=== PATIENT | female | born 1960 | race Caucasian/White ===

== ENCOUNTER → 2017-11-29 | Outpatient (CLI) | payer OTHER ==
[~2017-11-29] VITALS: Ht 162.6 cm; Wt 80.7 kg
[~2017-11-29] MED LIST: AMITRIPTYLINE H10 M3 PO; BACTRIM DS TAB1 EAC1 PO; CRANBERRY200 MG PO; LIPITOR10 MG PO; LISINOPRIL10 MG PO; MEDROLDOSEPACK PO; NEURONTIN300 MG PO; NORCO 5-325 TA1 EACH PO; PERCOCET 5-3251 EACH PO; PERCOCET PO; VITAMIN D3400 UNIT PO; ZOLOFT100 MG PO
[2017-11-29 19:16] VITALS: BP 136/78
== END ==
LOC: M.ERS 16:40 → M.CT 16:40
DX: R10.9 Unspecified abdominal pain (principal); R31.9 Hematuria, unspecified; Z90.710 Acquired absence of both cervix and uterus

== ENCOUNTER → 2017-12-02 | Outpatient (CLI) | payer OTHER | LOC: M.MRI 06:39 | DX: M47.812 Spondylosis without myelopathy or radiculopathy, cervical region (principal); M48.02 Spinal stenosis, cervical region ==

== ENCOUNTER → 2018-01-20 | Outpatient (CLI) | payer OTHER ==
--- NOTE | 2018-01-28 17:38 | PAINCON ---
[address] [address] PAIN MANAGEMENT CONSULTATION Name: ISABEL DALE Room: [facility].#: [id number] Admission: 01/20/18 Attend Phys: Patti Vasquez MD Discharge: Date of : 64 Report #: [id number] THIS REPORT FOR: //name// CC: Aysha Vasquez DATE OF SERVICE: 01/20/2018 CHIEF COMPLAINT: "Pain in my right shoulder, arm and down into my finger." HISTORY OF PRESENT ILLNESS: The patient is a 57-year-old female who has been referred to the pain clinic for evaluation of neck and arm pain. The patient states that she has been experiencing pain and discomfort involving her right arm with pain radiating down into the right arm with some numbness in the forearm as well as into the index finger. She has tried a Medrol Dosepak and oxycodone. She did not note any long-term or significant benefit from that. She has gone to a chiropractor. Rates her pain as a 6-7/. She has been trying gabapentin 300 mg t.i.d. The patient has been seen in the Emergency Room because of the pain and discomfort. She has had an MRI, which has shown some bulging of the disks in the cervical area along the C6-C7 area. ALLERGIES: No known drug allergies. MEDICATIONS: Lipitor 10 mg at bedtime, vitamin D3, cranberry extract 200 mg, Neurontin 300 mg t.i.d., lisinopril 10 mg, and Zoloft 100 mg at bedtime. PAST MEDICAL HISTORY: Hypertension, thyroid disease - goiter, emotional problems/depression, mitral regurgitation, and hyperlipidemia. PAST SURGICAL HISTORY: Hysterectomy in 07/2014, right knee surgery 12/2010, right knee surgery 11/2017, and goiter biopsy of the thyroid on 12/30/2016. 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 She is working at this juncture. REVIEW OF SYSTEMS: Generally good health, wears glasses, change in bowel movements, constipation, frequent urination, incontinent, right knee surgery, pain and walking difficulty because of that. LABORATORY DATA: MRI dated 12/02/2017: 1. C5-C6 left paracentral disk osteophyte complex, which effaces the left lateral recess. No significant central canal stenosis. No significant right or wwxcnqpi-ey-pzoepm left neural foraminal narrowing. 2. C6-C7 posterior disk osteophyte complex with mild bilateral facet hypertrophy resulting in moderate central canal stenosis, mild left and no significant [place] [address] PAIN MANAGEMENT CONSULTATION Name: ISABEL DALE Room: [facility] Michelle#: [id number] Admission: 01/20/18 Attend Phys: Patti Vasquez MD Discharge: Date of : 64 Report #: [id number] 3. C7-T1, no significant central canal stenosis or neural foraminal narrowing. 4. Neural foraminal narrowing. PAIN CLINIC ASSESSMENT: 1. History of osteoarthritis/rheumatoid arthritis. The patient has not been treated for rheumatoid arthritis or osteoarthritis. 2. Height 5 feet 4 inches. Weight 179 pounds, BMI is 30.8. 3. Vital signs: Blood pressure 142/82, heart rate 83, respiratory rate 16, room air saturation 97%, temperature 98.3. 4. Pain intensity 6-7/10. 5. Fall risk. The patient has not fallen in the last 3 months. 6. Blood thinner. The patient is not on a blood thinning medication. 7. History of hypertension. The patient is being treated for hypertension. 8. Opioid greater than 6 weeks. The patient is not on opioid therapy. 9. Risk assessment tool. 10. Functional assessment tool. 11. Recreational drug use. 12. Tobacco: The patient denies use of tobacco. 13. Alcohol: The patient drinks alcoholic beverage on occasion. PHYSICAL EXAMINATION: GENERAL: The patient is a well-developed, slightly obese white female, appears her stated age. She is alert and oriented x 3. Affect is appropriate. Speech is fluent. HEENT: Normocephalic, atraumatic. Extraocular eye muscles intact. Sclerae nonicteric. Mucous membranes are moist. NECK: Without adenopathy or bruits. Good range of motion. ABDOMEN: Protuberant. MUSCULOSKELETAL: Upper extremity muscle strength is judged to be 5/5 for the major muscle groups. The patient has some pain and discomfort with numbness and weakness involving the right arm. Pain down in the suprascapular area and pain radiating down the lateral portion of the forearm involving the index finger, where the patient notes numbness, pain, and discomfort. Musculoskeletal without significant scoliosis, kyphosis, or lordosis. Lower extremity muscle strength is judged to be 5/5 for the major muscle groups. Left and right lateral bending, left and right lateral rotation were unremarkable. Yosvany's sign is negative. Anterior and posterior spring tests are negative. IMPRESSION: Cervical radiculopathy involving the right arm with numbness in the suprascapular area down the right shoulder, forearm with numbness in the index finger. RECOMMENDATIONS: We discussed the treatment options with the patient and a cervical epidural steroid injection. A model was used to indicate the area of probable pathology. The patient's MRI was reviewed with the patient and her . It appears that there is an irritation of the nerve root in C6-C7 [place] [id number] PAIN MANAGEMENT CONSULTATION Name: ISABEL DALE Room: [facility]#: [id number] Admission: 01/20/18 Attend Phys: Patti Vasquez MD Discharge: Date of : 64 Report #: [id number] area. We will have the patient return to the pain clinic at which time we will pursue a cervical epidural steroid injection. She has clinical signs consistent with that. The patient will try Percocet 5 mg 1 p.o. t.i.d. to help curtail the pain. She will also try amitriptyline 10 mg 2 tablets at bedtime. She will stop these medications, if she has any problems with them. We would like to thank you for letting us participate in her care. We also recommend that the patient refrain from going to the chiropractor at this juncture. <ELECTRONICALLY SIGNED> By: Patti Vasquez MD 01/28/18 1738 [id number]. Zi Vasquez MD /nt
== END ==
LOC: M.PC 05:01
DX: M54.12 Radiculopathy, cervical region (principal); R20.0 Anesthesia of skin

== ENCOUNTER → 2018-01-27 | Outpatient (CLI) | payer OTHER ==
--- NOTE | 2018-03-07 10:00 | PAINCON ---
[address] [address] PAIN MANAGEMENT CONSULTATION Name: ISABEL DALE Room: [facility].#: [id number] Admission: 01/27/18 Attend Phys: Patti Vasquez MD Discharge: Date of : 64 Report #: [id number] THIS REPORT FOR: //name// CC: Aysha Vasquez DATE OF SERVICE: 01/27/2018 FOLLOWUP COMPLAINT: Here for an injection. FOLLOWUP HISTORY: The patient is a 57-year-old female who has been seen in the pain clinic because of right cervical radiculopathy. The patient is having pain that is radiating down into her right arm, mid back and on the right side with numbness and weakness involving her fingers. She has found that the oxycodone and amitriptyline have been helpful. Rates her pain as about 70% better. Still has pain and discomfort and has returned to the pain clinic for a cervical epidural steroid injection. As you recall, she has an MRI, which shows irritation and bulging disks in the cervical area at C6-C7. ALLERGIES: No known drug allergies. MEDICATIONS: Lipitor 10 mg at bedtime, vitamin D3, cranberry extract 200 mg, Neurontin 300 mg t.i.d., lisinopril 10 mg, Zoloft 100 mg at bedtime, amitriptyline 10 mg 2 tablets at bedtime, oxycodone 5/325 p.r.n. PAIN CLINIC ASSESSMENT/PQRS: 1. History of osteoarthritis/rheumatoid arthritis. The patient has not been treated for rheumatoid arthritis or osteoarthritis. 2. Height 5 feet 4 inches, weight 180 pounds and BMI is 31. 3. Vital signs: Blood pressure 131/72, heart rate 91, respiratory rate 16, room air saturation 95% and temperature 98.3. 3. Pain intensity 07/31. 4. Fall risk. The patient has not fallen in the last 3 months. 5. Blood thinner. The patient is not on a blood thinning medication. 6. History of hypertension. The patient is being treated for hypertension. 7. Opioid greater than 6 weeks. The patient is not receiving opioids on term. 8. Risk assessment tool, low for use of opioid medication. 9. Functional assessment tool. 10. Recreational drug use. 11. Tobacco: The patient denies use of tobacco. 12. Alcohol: The patient denies use of alcoholic beverages except on occasion. PHYSICAL EXAMINATION: GENERAL: The patient is a well-developed, well-nourished, slightly obese white female, appears of stated age. She is alert and oriented x 3. Affect is appropriate. Speech is fluent. The patient's [place] [address] PAIN MANAGEMENT CONSULTATION Name: ISABEL DALE Room: [facility]#: [id number] Admission: 01/27/18 Attend Phys: Patti Vasquez MD Discharge: Date of : 64 Report #: [id number]. HEENT: Normocephalic, atraumatic. Extraocular muscles intact. Sclerae nonicteric. Mucous membranes are moist. NECK: Without adenopathy or bruits. Good range of motion. Upper extremity muscle strength is judged to be 5/5 for the major muscle groups. Notes some decreased strength with numbness and tingling involving the right arm on with some discomfort in the right scapular area as well. Notes pain that is radiating down the forearm and involving the index finger with numbness, pain and discomfort. MUSCULOSKELETAL: Without scoliosis, kyphosis or lordosis. Lower extremity muscle strength is judged to be 5/5 for the major muscle groups. Left and right bending, left and right rotation not problematic. Yosvany's sign negative. IMPRESSION: 1. Cervical radiculopathy involving the right arm with numbness, radiating into the supra scapular area as well as down the right shoulder into the forearm involving the index finger. RECOMMENDATIONS: We discussed treatment options with the patient and her . Risks and benefits of a cervical epidural steroid injection were reviewed. They include but are not limited to infection, increased muscle soreness, worsening of pain, no improvement in pain and the patient elects to proceed. PROCEDURE NOTE: The patient was assisted in getting on the table in the treatment room. A pillow was placed under her chest bolster and improved positioning. Her back of neck was sterilely prepped with a Betadine solution. Fluoroscopy using anterior, posterior as well as lateral viewing were instituted and instrumental in performing the procedure. The right paraspinous approach was used. A 0.25% bupivacaine had been infiltrated. A 17-gauge Tuohy with loss of resistance technique was used. After appropriate placement, a total of 120 mg triamcinolone was injected. The patient tolerated the procedure well. There were no complications. A total of 16 seconds fluoroscopy time was used. The patient remained in the pain clinic for an appropriate amount of time. She will follow up in the future as needed. We would like to thank you for letting us participate in her care. We hope she continues to improve. <ELECTRONICALLY SIGNED> By: Patti Vasquez MD 03/07/18 1000 [id number]. Zi Vasquez MD /fidelia
== END | disposition home or self-care (01) ==
LOC: M.PC 04:41
DX: M54.12 Radiculopathy, cervical region (principal); Z79.899 Other long term (current) drug therapy

== ENCOUNTER → 2018-03-03 | Outpatient (CLI) | payer OTHER ==
--- NOTE | 2018-04-06 15:38 | PAINCON ---
[address] [address] PAIN MANAGEMENT CONSULTATION Name: ISABEL DALE Room: [facility].#: [id number] Admission: 03/03/18 Attend Phys: Patti Vasquez MD Discharge: Date of : 64 Report #: [id number] THIS REPORT FOR: //name// CC: Aysha Vasquez DATE OF SERVICE: 03/03/2018 CHIEF COMPLAINT: Here for another injection, things improved to about 70% after last injection. FOLLOWUP HISTORY: The patient is a 57-year-old female who has been seen in the pain clinic because of cervical radiculopathy. She underwent a cervical epidural steroid injection at the last visit. She has been having pain in her right shoulder, right arm with pain in the upper back and pain that radiates down into her hand. She received about 70% benefit after the last injection. She feels that her pain still is somewhat problematic and would like to proceed with another injection. Overall, things are improving. She has had no complications from the procedure. She hopes that her second injection will be as dramatic as the first. She and her are both happy that she is having less pain, which has been quite debilitating and constant. She rates her pain as a 2-3 at this juncture. 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 Bending can be problematic. Pain improves with repositioning. ALLERGIES: No known drug allergies. CURRENT MEDICATIONS: Lipitor 10 mg at bedtime, vitamin D3, cranberry extract 200 mg, Neurontin 300 mg t.i.d., lisinopril 10 mg, Zoloft 100 mg at bedtime, amitriptyline 10 mg 2 tablets at bedtime, and oxycodone 5/325 p.r.n. PAIN CLINIC ASSESSMENT AND PQRS: 1. History of osteoarthritis/rheumatoid arthritis. The patient has not been treated for osteoarthritis or rheumatoid arthritis. 2. Height 5 feet 4 inches, weight 177 pounds, BMI is 30.5. 3. Vital Signs: Blood pressure 119/86, heart rate 80, respiratory rate 16, room air saturation 96%, and temperature 98.3. 4. Pain intensity 2-3/10. 5. Fall history: The patient has not fallen in the last 3 months. 6. Blood thinner. The patient is not on a blood thinning medication. 7. Hypertension. The patient has not been treated for hypertension. 8. Opioids greater than 6 weeks. The patient is not receiving opioids for fci. 9. Risk assessment tool, low for use of opioids. 10. Functional assessment tool. 11. Recreational drug use: [place] [address] PAIN MANAGEMENT CONSULTATION Name: ISABEL DALE Room: [facility]#: [id number] Admission: 03/03/18 Attend Phys: Patti Vasquez MD Discharge: Date of : 64 Report #: [id number] 12. Tobacco: The patient denies use of tobacco. 13. Alcohol: The patient denies use of alcoholic beverages except for an occasion. PHYSICAL EXAMINATION: GENERAL: The patient is a well-developed, well-nourished white female. Slightly obese. Appears her stated age. She is alert and oriented x 3. Her affect is appropriate. Speech is fluent. HEENT: Normocephalic, atraumatic. Extraocular eye muscles intact. NECK: Without adenopathy or bruits. EXTREMITIES: Good range of motion. Upper extremity muscle strength is judged to be 5/5 for the major muscle groups. The patient notes less pain and discomfort in the right shoulder, less in the forearm. Less tingling. Less pain radiating down into the forearm and with less involvement in the fingers. MUSCULOSKELETAL: Without significant scoliosis, kyphosis or lordosis. Lower extremity muscle strength is judged to be 5/5 for the major muscle groups. Left and right lateral bending, Yosvany sign all negative. The patient is a [place]. IMPRESSION: Cervical radiculopathy involving the right arm with numbness, radiating down into the suprascapular area as well as in the right shoulder into the forearm involving the index fingers, which is improved with the epidural steroid injection provided at the last visit. RECOMMENDATIONS: We discussed treatment options with the patient. At this juncture, we will proceed with another injection. Risks and benefits of the procedure were again reviewed. They include but are not limited to infection, increased muscle soreness, headache, bleeding, worsening of pain, no improvement in pain. The patient elects to proceed. PROCEDURE NOTE: The patient was placed in the prone position. Fluoroscopy was used to identify the epidural space using an anterior, posterior as well as lateral approach. A 0.25% bupivacaine was infiltrated. A 17-gauge Tuohy with loss of resistance technique was used to gain access to the epidural space. A right paramedian approach was chosen. A total of 120 mg triamcinolone was injected. The patient tolerated the procedure well. She remained in the Pain Clinic for an appropriate amount of time. She will follow up in the future as needed. We would like to thank you for letting us participate in her care. We hope she continues to improve. A total of about 10 seconds fluoroscopy time was used today. <ELECTRONICALLY SIGNED> By: Patti Vasquez MD 04/06/18 1538 1422 1455N. Zi Vasquez MD /nt
== END | disposition home or self-care (01) ==
LOC: M.PC 05:19
DX: M54.12 Radiculopathy, cervical region (principal); G89.29 Other chronic pain; Z98.890 Other specified postprocedural states; Z79.899 Other long term (current) drug therapy

== ENCOUNTER → 2018-03-31 | Outpatient (CLI) | payer OTHER ==
--- NOTE | ~2018-03-31 | PAINCON ---
[address] [address] PAIN MANAGEMENT CONSULTATION Name: ISABEL DALE Room: [facility].#: [id number] Admission: 03/31/18 Attend Phys: Patti Vasquez MD Discharge: Date of : 64 Report #: [id number] THIS REPORT FOR: //name// CC: Aysha Vasquez DATE OF SERVICE: 03/31/2018 FOLLOWUP HISTORY: The right shoulder, arm and mid back pain. HISTORY: The patient is a 57-year-old female who has been seen in the pain clinic because of cervical radiculopathy. She has undergone epidural steroid injections in the past. She has gleaned benefits from these. Overall, she feels that things are continuing to be helpful. Still has some pain and discomfort, which is pain that is radiating down into her right shoulder, arm and into the mid back area. Feels that the Elavil and oxycodone are helpful. She and her are contemplating going back to [place]. They will do this around the time of . She would like to undergo an epidural steroid injection, so that she could be as comfortable as possible during the time of travel. ALLERGIES: No known drug allergies. CURRENT MEDICATIONS: Lipitor 10 mg at bedtime, vitamin D3, cranberry extract 200 mg, Neurontin 300 mg t.i.d., lisinopril 10 mg, Zoloft 100 mg at bedtime, amitriptyline 10 mg 2 tablets at bedtime, oxycodone 5/325 p.r.n. PAIN CLINIC/PQRS: 1. History of osteoarthritis/rheumatoid arthritis. The patient is not being treated for osteoarthritis or rheumatoid arthritis. 1. Height 5 feet 4 inches, weight 178 pounds, BMI is 30.6. 2. Vital signs: Blood pressure 129/82, heart rate 94, respiratory rate 16, room air saturation is 98%. Temperature 98.3. 3. Pain intensity 08/31. 4. Fall history: The patient has not fallen in the last 3 months. 5. Blood thinner. The patient is not on a blood thinning medication. 6. Hypertension. The patient has not been treated for hypertension. 7. Opiate greater than 6 weeks. The patient is receiving medications from the pain clinic of oxycodone. 8. Risk assessment tool, low for opioid use. 9. Functional assessment tool. 10. Recreational drug use. The patient denies use of recreational drugs. 11. Tobacco: The patient denies use of tobacco. 12. Alcoholic beverages. The patient denies except use of alcoholic beverages [place] [address] PAIN MANAGEMENT CONSULTATION Name: ISABEL DALE [facility] [id number] Admission: 03/31/18 Attend Phys: Patti Vasquez MD Discharge: Date of : 64 Report #: [id number] PHYSICAL EXAMINATION: GENERAL: The patient is a well-developed, well-nourished white female. Appears her stated age. She is slightly obese. Affect is appropriate. Speech is fluent. HEENT: Normocephalic, atraumatic. Extraocular eye muscles intact. NECK: Without adenopathy or bruits. EXTREMITIES: Good range of motion. Upper extremity muscle strength is judged to be 5/5 for the major muscle groups. The patient has some pain and discomfort in her right shoulder as well as in the right forearm. Does have tingling, but less so than before the initial injections. Less involvement of her fingers. MUSCULOSKELETAL: Without significant scoliosis, kyphosis or lordosis. Lower extremity muscle strength judged to be 5/5 for the major muscle groups. Left and right lateral bending, negative. Yosvany's sign is negative. IMPRESSION: Cervical radiculopathy involving the right arm with numbness and tingling, which continues to radiate down into the suprascapular area as well as the right shoulder and involving the index fingers, which has improved with the previous 2 epidural steroid injections. RECOMMENDATIONS: We will proceed with another injection. Risks and benefits of the procedure were again reviewed. Possible complications of the procedure, which could include but are not limited to infection, increased muscle soreness, headache pain, worsening of pain, no improvement in pain, paralysis were discussed and the patient elects to proceed. PROCEDURE NOTE: The patient was placed in the prone position. Fluoroscopy was used to identify the appropriate anatomy using anterior and posterior as well as lateral viewing. A pillow was placed under the patient's shoulders to improve positioning. Her neck was sterilely prepped with a Betadine solution. A 0.25% bupivacaine was infiltrated into this area. A 17-gauge Tuohy with loss of resistance technique was used to gain access to the epidural space at the C7-T1 interspace. A total of 120 mg triamcinolone was injected. The patient tolerated the procedure well. There were no complications. A total of about 15 seconds fluoroscopy time was used. The patient remained in the pain clinic for an appropriate amount of time. She will follow up in the future as needed. We would like to thank you for letting us participate in her care. We hope she continues to improve. By: [id number] [id number]. MD jj Mead
== END | disposition home or self-care (01) ==
LOC: M.PC 05:10
DX: M54.12 Radiculopathy, cervical region (principal); G89.29 Other chronic pain; Z79.899 Other long term (current) drug therapy; Z79.891 Long term (current) use of opiate analgesic

== ENCOUNTER → 2020-03-05 | Outpatient (CLI) | payer OTHER | LOC: M.CT 08:00 | PROVIDERS: ATTEND Family Medicine | DX: Z13.6 Encounter for screening for cardiovascular disorders (principal); E78.2 Mixed hyperlipidemia ==

== ENCOUNTER → 2021-03-20 | Outpatient (CLI) | payer OTHER ==
[~2021-03-20] MED LIST changes: +AMITRIPTYLINE H10 M1 PO
== END ==
LOC: M.PC 07:33
PROVIDERS: ATTEND Anesthesiology Pain Medicine
DX: M47.22 Other spondylosis with radiculopathy, cervical region (principal); M48.02 Spinal stenosis, cervical region; I10 Essential (primary) hypertension; E78.00 Pure hypercholesterolemia, unspecified; Z96.651 Presence of right artificial knee joint; Z90.710 Acquired absence of both cervix and uterus; Z79.899 Other long term (current) drug therapy

== ENCOUNTER → 2021-03-27 | Outpatient (CLI) | payer OTHER ==
[~2021-03-27] MED LIST changes: +MOBIC15 MG PO; +tumeric PO
== END | disposition home or self-care (01) ==
LOC: M.PC 09:43
PROVIDERS: ATTEND Anesthesiology Pain Medicine
DX: M54.12 Radiculopathy, cervical region (principal); G89.29 Other chronic pain; I10 Essential (primary) hypertension; E78.00 Pure hypercholesterolemia, unspecified; Z98.890 Other specified postprocedural states; Z90.710 Acquired absence of both cervix and uterus; Z96.651 Presence of right artificial knee joint; Z79.899 Other long term (current) drug therapy